=== PATIENT | female | born 1965 ===

== ENCOUNTER 2017-10-20 22:09 | Emergency (ER) | payer OTHER ==
[2017-10-20 22:09] VITALS: BMI 28.1
--- NOTE | 2017-10-20 22:42 | C.PDOC ---
History Of Present Illness 52 y/o female presents with sudden onset diffuse urticarial to the abdomen and groin. Patient recently underwent hysterectomy on 10/10 and finished her course of Keflex yesterday. No new meds or food exposure. Patient is speaking in full sentences and is tolerating secretions. No fever, chills, throat/lip swelling or difficulty breathing. Time Seen by Provider: 10/20/17 22:42 Chief Complaint (Nursing): Abnormal Skin Integrity History Per: Patient History/Exam Limitations: no limitations Onset/Duration Of Symptoms: Hrs Current Symptoms Are (Timing): Still Present Location Of Injury: Right: Leg, Left: Leg, Anterior: Abdomen Severity: None Pain Scale Rating Of: 0 Recent travel outside of the [place]: No Past Medical History Reviewed: Historical Data, Nursing Documentation, Vital Signs Vital Signs: Last Vital Signs Temp 97.8 F 10/20/17 22:28 Pulse 84 10/20/17 23:44 Resp 18 10/20/17 23:44 BP 131/76 10/20/17 23:44 Pulse Ox 98 10/20/17 23:44 - Medical History PMH: Arthritis (neck,back), Hyperthyroidism, Hypothyroidism Denies: Chronic Kidney Disease Surgical History: - [facility] Procedures INSPECTION OF BLADDER, ENDO (10/10/17) RESECTION OF BI FALLOPIAN TUBE, VIA OPENING W [facility] ENDO (10/10/17) RESECTION OF BILATERAL OVARIES, VIA OPENING W [facility] ENDO (10/10/17) RESECTION OF UTERUS, VIA OPENING W [facility] ENDO (10/10/17) ROBOTIC ASSISTED PROCEDURE OF TRUNK, [facility] ENDO APPROACH (10/10/17) Family History: States: No Known Family Hx - Social History Hx Tobacco Use: No Hx Alcohol Use: No Hx Substance Use: No Review Of Systems Constitutional: Negative for: Fever, Chills ENT: Negative for: Mouth Swelling, Throat Swelling Respiratory: Negative for: Shortness of Breath Skin: Positive for: Rash (to abdomen and thighs), Lesions (incision site) Physical Exam - Physical Exam Appears: Non-toxic, No Acute Distress Skin: Warm, Dry, Rash (diffuse abdominal urticarial rash extending to mid thighs ) Head: Normacephalic Eye(s): bilateral: Normal Inspection Oral Mucosa: Moist Neck: Supple Chest: Symmetrical Cardiovascular: Rhythm Regular Respiratory: No Rales, No Rhonchi, No Wheezing Gastrointestinal/Abdominal: Soft, No Tenderness, Other (incision site clean and dry) Extremity: Bilateral: Atraumatic, Normal ROM Pulses: Left Dorsalis Pedis: Normal, Right Dorsalis Pedis: Normal Neurological/Psych: Oriented x3 ED Course And Treatment O2 Sat by Pulse Oximetry: 100 (RA) Pulse Ox Interpretation: Normal Progress Note: Patient given IV fluids, Benadryl, Pepcid, and Solu-Medrol Reevaluation Time: 00:49 Reassessment Condition: Improved Critical Care Time - Critical Care Note Total Time (in mins): 30 Documented critical care: time excludes all time spent performing seperately billable procedures. Disposition Counseled Patient/Family Regarding: Studies Performed, Diagnosis, Need For Followup, Rx Given - Disposition Referrals: Brooke Doty MD [Staff Provider] - Disposition: HOME/ ROUTINE Disposition Time: 22:42 Condition: FAIR Additional Instructions: Please return if symptoms recur. Also use benadryl, pepcid and claritin Prescriptions: Epinephrine [Epipen] 0.3 mg IJ ONCE PRN #2 auto.injct PRN Reason: Anaphylaxis Prednisone [Deltasone] 20 mg PO DAILY #5 tablet Instructions: Adverse Drug Reactions, Adult (DC) Forms: [employer] (Panamanian) - Clinical Impression Clinical Impression: Allergic reaction - Scribe Statement The provider has reviewed the documentation as recorded by the Scribe (Luana Alvarez) Provider Attestation: All medical record entries made by the Scribe were at my direction and personally dictated by me. I have reviewed the chart and agree that the record accurately reflects my personal performance of the history, physical exam, medical decision making, and the department course for this patient. I have also personally directed, reviewed, and agree with the discharge instructions and disposition.
[2017-10-20] MEDS ORDERED: DiphenhydrAMINE 50 mg/ml Inj IVP STA (22:51)
[2017-10-20] MEDS ORDERED: Sodium Chloride 0.9% 1,000 ML IV ONE (22:52)
[2017-10-20] MEDS ORDERED: DiphenhydrAMINE 50 mg/ml Inj ONE (23:12)
[2017-10-20] MEDS ORDERED: Sodium Chloride 0.9% 1,000 ML ONE (23:13)
[2017-10-20 23:45] VITALS: RESP 18
[2017-10-21 01:00] VITALS: BP 130/76; PULSE 82; TEMP 98.4; O2SAT 99
== END 2017-10-21 01:03 | disposition home or self-care (01) ==
LOC: C.ER 22:09
DX: L50.0 Allergic urticaria (principal)
CPT/HCPCS: 96374; 96375; 99284; J1200; J2930; J7040